=== PATIENT | male | born 1960 | race Native Hawaiian/Other Pacific Islander ===

== ENCOUNTER 2019-02-09 13:20 | Outpatient (CLI) | payer BC ==
[2019-02-09 13:41] LABS: PLATELET COUNT 161 K/uL (142-355)
[2019-02-09 13:48] LABS: POTASSIUM 4.3 mmol/L (3.6-5.2)
== END 2019-02-09 19:34 | disposition home or self-care (01) ==
LOC: LAB 13:20
PROVIDERS: Surgery Vascular Surgery
DX: Z01.810 Encounter for preprocedural cardiovascular examination (principal); Z01.811 Encounter for preprocedural respiratory examination; Z01.812 Encounter for preprocedural laboratory examination; I65.22 Occlusion and stenosis of left carotid artery
CPT/HCPCS: 36415; 80048; 85027; 93005

== ENCOUNTER 2020-04-13 18:36 | Emergency (ER) | payer BC ==
[~2020-04-13] VITALS: Ht 182.9 cm; Wt 106.6 kg
[2020-04-13 20:55] VITALS: BP 105/66; TEMP 99.1
== END 2020-04-13 20:55 | disposition home or self-care (01) ==
LOC: ED 18:36
PROC: 0HQEXZZ Repair Left Lower Arm Skin, External Approach (ICD-10-PCS; principal; 2020-04-13)
PROC: 2W3DX1Z Immobilization of Left Lower Arm using Splint (ICD-10-PCS; 2020-04-13)
DX: S51.852A Open bite of left forearm, initial encounter (principal); W54.0XXA Bitten by dog, initial encounter; Y92.89 Other specified places as the place of occurrence of the external cause
CPT/HCPCS: 36415; 96365; 96375; 99284; J0696; J2270; J2405

== ENCOUNTER 2021-12-22 14:48 | Outpatient (CLI) | payer BC | END 2021-12-22 20:04 | disposition home or self-care (01) | LOC: RAD 14:48 | PROVIDERS: ATTEND Nurse Practitioner Family | DX: L92.0 Granuloma annulare (principal); M06.4 Inflammatory polyarthropathy; M35.3 Polymyalgia rheumatica; Z79.891 Long term (current) use of opiate analgesic; Z79.899 Other long term (current) drug therapy ==